=== PATIENT | female | born 1990 | race American Indian/Alaskan Native ===

== ENCOUNTER 2021-05-22 02:20 | Emergency (ER) | payer SELFPAY ==
[2021-05-22 02:58] VITALS: BP 117/71
--- NOTE | 2021-05-23 09:39 | Electrocardiograph Report ---
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
== END 2021-05-22 04:30 | disposition left against medical advice (07) ==
LOC: ED 02:20
DX: R20.0 Anesthesia of skin (principal); Z53.21 Procedure and treatment not carried out due to patient leaving prior to being seen by health care provider
CPT/HCPCS: 93005